=== PATIENT | female | born 1995 | race African-American/Black ===

== ENCOUNTER 2016-09-13 12:32 | Emergency (ER) | payer MEDICAID, OTHER ==
[~2016-09-13] VITALS: Ht 167.6 cm; Wt 78.0 kg
[~2016-09-13 12:32] MED LIST: MACR100C PO; NAPR-576 PO
[2016-09-13 12:33] VITALS: BP 103/56; PULSE 92; RESP 18; TEMP 98.6; O2SAT 98
[2016-09-13] MEDS ORDERED: SODIUM CHLOR 0.9% 1000 ML INJ 1,000 ML IV SCH (13:44)
[2016-09-13] MEDS ORDERED: SODIUM CHLORIDE 0.9% FLUSH 10 ML FLUSH IV FLUSH PRN (13:45)
[2016-09-13] MEDS ORDERED: ONDANSETRON HCL 4 MG/2 ML VIAL IVP ONE (13:45)
--- NOTE | 2016-09-13 13:46 | PD ---
HPI Chief Complaint: GI Complaint Time Seen by Provider: 13:46 Travel History International Travel<30 days: No Contact w/Intl Traveler<30days: No Traveled to known affect area: No History of Present Illness HPI 21-year-old female with no significant medical history presents to the emergency department for evaluation of nausea, vomiting, diarrhea since yesterday. Patient denies any hematemesis or hematochezia. No urinary symptoms. No abdominal pain. Patient states she is not . No vaginal bleeding or discharge. Cannot recall last menstrual cycle at this time. Denies any recent illnesses, fever, chills. No chest tightness. No difficulty breathing. No other symptoms to report. PFSH Past Medical History Asthma: Yes Developmental Delay: No Diabetes: No Diminished Hearing: No Immune Disorder: No Immunizations Current: Yes Social History Alcohol Use: Yes Tobacco Use: Yes Substance Use: No Allergies-Medications (Allergen,Severity, Reaction): Coded Allergies: Penicillin (Verified Adverse Reaction, Intermediate, YEAST INFECTION, 09/13) Reported Meds & Prescriptions Reported Meds & Active Scripts Active No Active Prescriptions or Reported Medications Review of Systems Except as stated in HPI: all other systems reviewed are Neg Physical Exam Narrative GENERAL: Well-nourished female patient, in no acute distress SKIN: Warm and dry. HEAD: Atraumatic. Normocephalic. EYES: Pupils equal and round. No scleral icterus. No injection or drainage. ENT: No nasal bleeding or discharge. Mucous membranes pink and moist. NECK: Trachea midline. No JVD. CARDIOVASCULAR: Elevated rate and rhythm. No murmur appreciated. RESPIRATORY: No accessory muscle use. Clear to auscultation. Breath sounds equal bilaterally. GASTROINTESTINAL: Abdomen soft, non-tender, nondistended. Hepatic and splenic margins not palpable. MUSCULOSKELETAL: No obvious deformities. No clubbing. No cyanosis. No edema. NEUROLOGICAL: Awake and alert. No obvious cranial nerve deficits. Motor grossly within normal limits. Normal speech. PSYCHIATRIC: Appropriate mood and affect; insight and judgment normal. Data Data Last Documented VS Vital Signs Date Time Temp Pulse Resp B/P Pulse Ox O2 Delivery O2 Flow Rate FiO2 09/13/16 13:53 93 09/13/16 13:47 98.2 83 109/63 Room Air 09/13/16 12:33 18 Orders Basic Metabolic Panel (Bmp) (09/13/16 13:44) Complete Blood Count With Diff (09/13/16 13:44) Urinalysis - C+S If Indicated (09/13/16 13:44) Iv Access Insert/Monitor (09/13/16 13:44) Ecg Monitoring (09/13/16 13:44) Oximetry (09/13/16 13:44) Ondansetron Inj (Zofran Inj) (09/13/16 13:45) Sodium Chlor 0.9% 1000 Ml Inj (Ns 1000 M (09/13/16 13:44) Sodium Chloride 0.9% Flush (Ns Flush) (09/13/16 13:45) Ed Urine Pregnancytest Poc (09/13/16 13:44) Labs Laboratory Tests Test 09/13/16 13:52 White Blood Count 12.1 TH/MM3 Red Blood Count 4.54 MIL/MM3 Hemoglobin 13.7 GM/DL Hematocrit 40.5 % Mean Corpuscular Volume 89.3 FL Mean Corpuscular Hemoglobin 30.2 PG Mean Corpuscular Hemoglobin 33.8 % Concent Red Cell Distribution Width 13.9 % Platelet Count 177 TH/MM3 Mean Platelet Volume 9.7 FL Neutrophils (%) (Auto) 91.4 % Lymphocytes (%) (Auto) 3.0 % Monocytes (%) (Auto) 5.0 % Eosinophils (%) (Auto) 0.5 % Basophils (%) (Auto) 0.1 % Neutrophils # (Auto) 11.0 TH/MM3 Lymphocytes # (Auto) 0.4 TH/MM3 Monocytes # (Auto) 0.6 TH/MM3 Eosinophils # (Auto) 0.1 TH/MM3 Basophils # (Auto) 0.0 TH/MM3 CBC Comment DIFF FINAL Differential Comment Urine Color YELLOW Urine Turbidity HAZY Urine pH 8.0 Urine Specific [place] 1.027 Urine Protein 30 mg/dL Urine Glucose (UA) NEG mg/dL Urine Ketones NEG mg/dL Urine Occult Blood NEG Urine Nitrite NEG Urine Bilirubin NEG Urine Urobilinogen LESS THAN 2.0 MG/DL Urine Leukocyte Esterase TRACE Urine RBC 1 /hpf Urine WBC 5 /hpf Urine Squamous Epithelial 39 /hpf Cells Urine Bacteria RARE /hpf Urine Mucus FEW /lpf Microscopic Urinalysis Comment CULT NOT INDICATED Sodium Level 138 MEQ/L Potassium Level 4.0 MEQ/L Chloride Level 102 MEQ/L Carbon Dioxide Level 29.6 MEQ/L Anion Gap 6 MEQ/L Blood Urea Nitrogen 12 MG/DL Creatinine 0.78 MG/DL Estimat Glomerular Filtration 114 ML/MIN Rate Random Glucose 100 MG/DL Calcium Level 8.5 MG/DL [facility] Medical Decision Making Medical Screen Exam Complete: Yes Emergency Medical Condition: Yes Medical Record Reviewed: Yes Differential Diagnosis Gastritis versus gastroenteritis viral versus bacterial versus colitis versus pancreatitis versus cholecystitis Narrative Course 21 year-old female presents to emergency department for evaluation of nausea, vomiting, diarrhea. Patient appears without distress. Overall her vital signs are stable. CBC is with mild leukocytosis 12.1 otherwise without acute concern. BMP is without acute concern. Urinalysis is hazy with 30 proteinuria , trace leukocyte esterase, rare bacteria, few mucus. Culture is not indicated. Patient is given IV fluids and Zofran. He has not vomited since in the emergency department. She verbalizes improvement in her symptoms. She is discharged home with anti-emetic. She agrees to return immediately with any acute worsening of symptoms. Diagnosis Primary Impression: Gastroenteritis Referrals: Primary Care Physician Patient Instructions: Gastroenteritis (ED), General Instructions Departure Forms: Tests/Procedures, Work Release Enter return to work date: Sep 15, 2016 Additional Instructions: Rest Maintain adequate oral hydration [place] diet Start with clear liquids and finances tolerated Follow-up with a primary care provider Return immediately with any acute worsening of symptoms Med/Other Pt SpecificInfo: Prescription(s) given Scripts Promethazine (Phenergan)25 Mg Tab25 Mg PO Q6H PRN (Nausea/Vomiting) #15 TAB Ref 0 Prov:Jennifer Black 09/13/16 Disposition: 01 DISCHARGE HOME Condition: Stable Jennifer Black Sep 13, 2016 13:46
[2016-09-13 13:47] VITALS: BP 109/63; PULSE 83; TEMP 98.2; O2SAT 96
[2016-09-13 13:53] VITALS: O2SAT 93
[2016-09-13 14:10] LABS: BASOPHIL % 0.1 % (0.0-2.0); EOSINOPHIL # 0.1 TH/MM3 (0-0.4); EOSINOPHIL % 0.5 % (0.0-4.0); HEMATOCRIT 40.5 % (35.0-46.0); HEMO FLAGS DIFF FINAL; LYMPHOCYTE # 0.4 TH/MM3 (1.0-4.8); MEAN CELL VOLUME 89.3 FL (80.0-100.0); MEAN CORPUSCULAR HEMOGLOBIN 30.2 PG (27.0-34.0); MEAN CORPUSCULAR HGB CONC 33.8 % (32.0-36.0); NEUT % 91.4 % (16.0-70.0); PLATELET COUNT 177 TH/MM3 (150-450); RED BLOOD COUNT 4.54 MIL/MM3 (4.00-5.30); RED CELL DISTRIBUTION WIDTH 13.9 % (11.6-17.2); WHITE BLOOD COUNT 12.1 TH/MM3 (4.0-11.0)
[2016-09-13 14:22] LABS: BACTERIA, URINE RARE /hpf; BLOOD, URINE NEG (NEG); COMMENT (UR) CULT NOT INDICATED; CULTURE IF INDICATED CULT NOT INDICATED; GLUCOSE,URINE NEG (NEG); KETONE, URINE NEG (NEG); MUCUS URINE FEW /lpf (OCC); NITRITE,URINE NEG (NEG); SQUAMOUS EPITHELIAL CELL URINE 39 /hpf (0-5); URINE COLOR YELLOW (YELLW/STRAW)
[2016-09-13 14:32] LABS: BICARBONATE 29.6 MEQ/L (21.0-32.0)
[2016-09-13] MEDS ORDERED: PROM25TA5 PO (14:44)
== END 2016-09-13 15:26 | disposition home or self-care (01) ==
LOC: NEPE 12:32
DX: K52.9 Noninfective gastroenteritis and colitis, unspecified (principal)
CPT/HCPCS: 80048; 81001; 84703; 85025; 96361; 96374; 99284; J2405; J7030

== ENCOUNTER 2017-05-21 12:51 | Emergency (ER) | payer SELFPAY ==
[~2017-05-21] VITALS: Ht 167.6 cm; Wt 63.2 kg
[~2017-05-21 12:51] MED LIST changes: -MACR100C PO; -NAPR-576 PO; +PROM25TA5 PO
[2017-05-21 12:54] VITALS: BP 109/62; PULSE 72; RESP 16; TEMP 98.3; O2SAT 99
[2017-05-21 15:21] LABS: BLOOD, URINE NEG (NEG); GLUCOSE,URINE NEG (NEG); KETONE, URINE NEG (NEG); NITRITE,URINE NEG (NEG); PH, URINE 5.5 (5.0-8.5)
[2017-05-21 15:47] LABS: URINE COLOR YELLOW (YELLW/STRAW)
[2017-05-21 15:48] LABS: SQUAMOUS EPITHELIAL CELL URINE 0-5 /hpf (0-5)
[2017-05-21 15:49] LABS: COMMENT (UR) CULT NOT INDICATED; CULTURE IF INDICATED CULT NOT INDICATED
[2017-05-21 17:22] LABS: AUTOMATED NEUTROPHIL # 4.5 TH/MM3 (1.8-7.7); BASOPHIL # 0.1 TH/MM3 (0-0.2); BASOPHIL % 1.5 % (0.0-2.0); EOSINOPHIL # 0.1 TH/MM3 (0-0.4); EOSINOPHIL % 1.2 % (0.0-4.0); HEMATOCRIT 37.3 % (35.0-46.0); HEMO FLAGS DIFF FINAL; LYMPH % 29.5 % (9.0-44.0); LYMPHOCYTE # 2.3 TH/MM3 (1.0-4.8); MEAN CELL VOLUME 89.7 FL (80.0-100.0); MEAN CORPUSCULAR HEMOGLOBIN 30.1 PG (27.0-34.0); MEAN CORPUSCULAR HGB CONC 33.6 % (32.0-36.0); MONO % 8.4 % (0.0-8.0); NEUT % 59.4 % (16.0-70.0); PLATELET COUNT 177 TH/MM3 (150-450); RED BLOOD COUNT 4.16 MIL/MM3 (4.00-5.30); RED CELL DISTRIBUTION WIDTH 12.7 % (11.6-17.2); WHITE BLOOD COUNT 7.6 TH/MM3 (4.0-11.0)
[2017-05-21 17:35] LABS: CHLORIDE 105 MEQ/L (98-107); POTASSIUM 3.6 MEQ/L (3.5-5.1); SODIUM (NA) 138 MEQ/L (136-145)
[2017-05-21 17:38] LABS: ANION GAP 4 MEQ/L (5-15); BICARBONATE 29.5 MEQ/L (21.0-32.0); BLOOD UREA NITROGEN 10 MG/DL (7-18)
--- NOTE | 2017-05-21 17:38 | PD ---
HPI Chief Complaint: Abdominal Pain Time Seen by Provider: 16:43 Travel History International Travel<30 days: No Contact w/Intl Traveler<30days: No Traveled to known affect area: No History of Present Illness HPI The patient was seen and examined in the presence of the nurse. This patient complains of some pelvic cramping. Duration 3 days. Symptoms are mild to moderate. Location is right lower quadrant. No vomiting or nausea or diarrhea. She is eating well. She is concerned that she has missed last month' s menstrual period. She is usually very regular on the menstrual periods. She took 3 home tests and one was positive and 2 were negative. She is confused as to if she is . Denies significant discharge. No lesions noted. No alleviating factors. No exacerbating factors PFSH Past Medical History Asthma: Yes Developmental Delay: No Diabetes: No Diminished Hearing: No Immune Disorder: No Immunizations Current: Yes Tetanus Vaccination: < 5 Years Influenza Vaccination: Yes ?: Unknown Social History Alcohol Use: No Tobacco Use: No Substance Use: No Allergies-Medications (Allergen,Severity, Reaction): Coded Allergies: penicillin G (Unverified Adverse Reaction, Intermediate, YEAST INFECTION, 05/21/17) Reported Meds & Prescriptions Reported Meds & Active Scripts Active No Active Prescriptions or Reported Medications Review of Systems General / Constitutional: No: Fever Eyes: No: Visual changes HENT: No: Headaches Cardiovascular: No: Chest Pain or Discomfort Respiratory: No: Shortness of Breath Gastrointestinal: Positive: Abdominal Pain Genitourinary: Positive: Pelvic Pain, No: Dysuria Musculoskeletal: No: Pain Skin: No Rash Neurologic: No: Weakness Psychiatric: No: Depression Endocrine: No: Polydipsia Hematologic/Lymphatic: No: Easy Bruising Physical Exam Narrative GENERAL: Well-nourished, well-developed patient in no apparent distress. SKIN: Focused skin assessment reveals no rash and nodules. Skin is Warm and dry. HEAD: Atraumatic. Normocephalic. EYES: Pupils equal and round. No scleral icterus. No injection or drainage. ENT: No nasal bleeding or discharge. Mucous membranes pink and moist. NECK: Trachea midline. No JVD. CARDIOVASCULAR: Regular rate and rhythm. No murmur appreciated. RESPIRATORY: No accessory muscle use. Clear to auscultation. Breath sounds equal bilaterally. GASTROINTESTINAL: Abdomen soft, non-tender, nondistended. Hepatic and splenic margins not palpable. MUSCULOSKELETAL: No obvious deformities. No clubbing. No cyanosis. No edema. NEUROLOGICAL: Awake and alert. No obvious cranial nerve deficits. Motor grossly within normal limits. Normal speech. PSYCHIATRIC: Appropriate mood and affect; insight and judgment normal. Pelvic: No significant discharge. No bleeding. No cervical motion tenderness. No adnexal mass or tenderness Data Data Last Documented VS Vital Signs Date Time Temp Pulse Resp B/P (MAP) Pulse Ox O2 Delivery O2 Flow Rate FiO2 05/21/17 17:59 72 16 113/64 (80) 100 Room Air 05/21/17 12:54 98.3 Orders Orders Urinalysis - C+S If Indicated (05/21/17 15:07) Ed Urine Pregnancytest Poc (05/21/17 15:07) Complete Blood Count With Diff (05/21/17 16:53) Basic Metabolic Panel (Bmp) (05/21/17 16:53) Beta Hcg (Quant/Titer) (05/21/17 16:53) Iv Access Insert/Monitor (05/21/17 16:53) Labs Laboratory Tests Test 05/21/17 15:15 05/21/17 17:05 Urine Color YELLOW Urine Turbidity CLEAR Urine pH 5.5 Urine Specific [place] 1.017 Urine Protein NEG mg/dL Urine Glucose (UA) NEG mg/dL Urine Ketones NEG mg/dL Urine Occult Blood NEG Urine Nitrite NEG Urine Bilirubin NEG Urine Leukocyte Esterase NEG Urine Squamous Epithelial Cells 0-5 /hpf Microscopic Urinalysis Comment CULT NOT INDICATED White Blood Count 7.6 TH/MM3 Red Blood Count 4.16 MIL/MM3 Hemoglobin 12.5 GM/DL Hematocrit 37.3 % Mean Corpuscular Volume 89.7 FL Mean Corpuscular Hemoglobin 30.1 PG Mean Corpuscular Hemoglobin Concent 33.6 % Red Cell Distribution Width 12.7 % Platelet Count 177 TH/MM3 Mean Platelet Volume 9.7 FL Neutrophils (%) (Auto) 59.4 % Lymphocytes (%) (Auto) 29.5 % Monocytes (%) (Auto) 8.4 % Eosinophils (%) (Auto) 1.2 % Basophils (%) (Auto) 1.5 % Neutrophils # (Auto) 4.5 TH/MM3 Lymphocytes # (Auto) 2.3 TH/MM3 Monocytes # (Auto) 0.6 TH/MM3 Eosinophils # (Auto) 0.1 TH/MM3 Basophils # (Auto) 0.1 TH/MM3 CBC Comment DIFF FINAL Differential Comment Blood Urea Nitrogen 10 MG/DL Creatinine 0.59 MG/DL Random Glucose 79 MG/DL Calcium Level 8.4 MG/DL Sodium Level 138 MEQ/L Potassium Level 3.6 MEQ/L Chloride Level 105 MEQ/L Carbon Dioxide Level 29.5 MEQ/L Anion Gap 4 MEQ/L Estimat Glomerular Filtration Rate 157 ML/MIN Human Chorionic Gonadotropin, Quant LESS THAN 1 MIU/ML MDM Medical Decision Making Medical Screen Exam Complete: Yes Emergency Medical Condition: Yes Medical Record Reviewed: Yes Differential Diagnosis Ectopic , IUP, PID, ovarian cyst Narrative Course I have reviewed the patient's electronic medical record. Patient's fairly frequent visitor. She has been here for pelvic pain in the past, one year ago IV placed CBC is normal Metabolic profile is normal Beta hCG is negative Urinalysis is normal Workup is normal Etiology of her amenorrhea and pelvic cramping is unclear No clinical suspicion of appendicitis She has benign soft nontender abdomen Recommend outpatient PERIOPERATIVE NURSE follow-up Diagnosis Primary Impression: Acute pelvic pain, female Additional Impression: Amenorrhea Additional Instructions: The patient was advised to follow up with loan service officer and return if they worsen. Med/Other Pt SpecificInfo: Other Scripts No Active Prescriptions or Reported Meds Disposition: 01 DISCHARGE HOME Condition: Stable Jones Mayfield MD May 21, 2017 17:38
[2017-05-21 17:41] LABS: GLOMERULAR FILTRATION RATE 157 ML/MIN (>89)
[2017-05-21 17:46] LABS: BETA HCG QUANT LESS THAN 1 MIU/ML (0-5)
[2017-05-21 17:59] VITALS: BP 113/64; PULSE 72; RESP 16; O2SAT 100
== END 2017-05-21 18:13 | disposition home or self-care (01) ==
LOC: PHED 12:51
DX: R10.2 Pelvic and perineal pain (principal); N91.2 Amenorrhea, unspecified
CPT/HCPCS: 80048; 81001; 84702; 84703; 85025; 99283

== ENCOUNTER 2017-07-12 05:01 | Emergency (ER) | payer SELFPAY ==
[~2017-07-12] VITALS: Ht 167.6 cm; Wt 63.5 kg
[2017-07-12 05:07] VITALS: BP 110/65; PULSE 78; RESP 16; TEMP 98.4; O2SAT 99
--- NOTE | 2017-07-12 05:37 | PD ---
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 She reports using a brand-new soap and thought maybe that was irritating her. She's also been here multiple times in the past which she says she's had possible positive bacterial vaginosis and yeast infections in the past I reviewed some of her cultures in the past they weren't never positive for GC or chlamydia. And I tell we will do a pelvic exam and send off for clue cells to rule and bacterial vaginosis but we would wait for the GC or chlamydia and to not empirically treat her with an injection or pills she agrees with that plan she says she's got burning localized pain in the vagina denies cramping denies dysuria denies frequency. She is not seen another doctor for this. And she has not taken any medications for this. PFSH Past Medical History Asthma: Yes Developmental Delay: No Diabetes: No Diminished Hearing: No Immune Disorder: No Immunizations Current: Yes Tetanus Vaccination: < 5 Years Influenza Vaccination: Yes ?: Not LMP: 06/10/17 : 0 Past Surgical History Surgical History: No Previous Surgery Social History Alcohol Use: No Tobacco Use: No Substance Use: No Allergies-Medications (Allergen,Severity, Reaction): Coded Allergies: penicillin G (Unverified Adverse Reaction, Intermediate, YEAST INFECTION, 05/21/17) Reported Meds & Prescriptions Reported Meds & Active Scripts Active Miconazole 3 Vaginal Supp (Miconazole Nitrate) 200 Mg Supp 200 Mg VAGINAL HS Review of Systems Except as stated in HPI: all other systems reviewed are Neg Genitourinary: Positive: Pelvic Pain (burning feeling in vagina) Physical Exam Narrative GENERAL: Nontoxic-appearing awake alert afebrile SKIN: Warm and dry. HEAD: Atraumatic. Normocephalic. EYES: Pupils equal and round. No scleral icterus. No injection or drainage. ENT: No nasal bleeding or discharge. Mucous membranes pink and moist. NECK: Trachea midline. No JVD. CARDIOVASCULAR: Regular rate and rhythm. RESPIRATORY: No accessory muscle use. Clear to auscultation. Breath sounds equal bilaterally. GASTROINTESTINAL: Abdomen soft, non-tender, nondistended. Hepatic and splenic margins not palpable. : Pelvic exam minimal discharge . There is no odor to slight discharge. there is no cottage cheese like discharge, there is no frothy grayish discharge , it appears to me like physiological normal discharge. Patient has Minimal to none CMT. No blood in the pelvic vaginal vault MUSCULOSKELETAL: Extremities without clubbing, cyanosis, or edema. No obvious deformities. NEUROLOGICAL: Awake and alert. No obvious cranial nerve deficits. Motor grossly within normal limits. Five out of 5 muscle strength in the arms and legs. Normal speech. PSYCHIATRIC: Appropriate mood and affect; insight and judgment normal. Data Data Last Documented VS Vital Signs Date Time Temp Pulse Resp B/P (MAP) Pulse Ox O2 Delivery O2 Flow Rate FiO2 07/12/17 05:17 16 07/12/17 05:07 98.4 78 110/65 (80) 99 Orders Orders Wet Prep Profile (07/12/17 05:21) Gc And Chlamydia Pcr (07/12/17 05:21) Urinalysis - C+S If Indicated (07/12/17 05:22) Ed Discharge Order (07/12/17 06:13) Labs Laboratory Tests Test 07/12/17 05:28 07/12/17 05:34 Urine Color YELLOW Urine Turbidity CLEAR Urine pH 6.0 Urine Specific [place] 1.025 Urine Protein NEG mg/dL Urine Glucose (UA) NEG mg/dL Urine Ketones NEG mg/dL Urine Occult Blood NEG Urine Nitrite NEG Urine Bilirubin NEG Urine Leukocyte Esterase NEG Urine RBC 0-2 /hpf Urine WBC 3-5 /hpf Urine Squamous Epithelial Cells 6-8 /hpf Urine Bacteria RARE /hpf Microscopic Urinalysis Comment CULT NOT INDICATED Clue Cells (Wet Prep) NONE SEEN Vaginal Trichomonas (Wet Prep) NONE SEEN Vaginal Yeast (Wet Prep) NONE SEEN MDM Medical Decision Making Medical Screen Exam Complete: Yes Emergency Medical Condition: Yes Differential Diagnosis Differential diagnosis includes bacterial vaginosis versus vaginitis secondary to soap exposure versus cervicitis PID UTI and other Narrative Course Pelvic exam does not disclose any significant discharge. There are no clue cells. And no trichomonas on wet prep patient will be discharged with miconazole suppository prescription and follow-up as an outpatient Diagnosis Primary Impression: Vaginitis Qualified Codes: N76.0 - Acute vaginitis Patient Instructions: General Instructions, Vaginitis (ED) Scripts Fluconazole (Diflucan) 150 Mg Tab 150 MG PO ONCE for Infection, #1 TAB 0 Refills Prov: Simone Vera MD 07/12/17 Miconazole 3 Vaginal Supp (Miconazole 3 Vaginal Supp) 200 Mg Supp 200 MG VAGINAL HS for Infection, #3 SUPP 0 Refills Prov: Simone Vera MD 07/12/17 Disposition: 01 DISCHARGE HOME Condition: Good Simone Vera MD Jul 12, 2017 05:37
[2017-07-12 05:48] LABS: BILIRUBIN, URINE NEG (NEG); BLOOD, URINE NEG (NEG); GLUCOSE,URINE NEG (NEG); KETONE, URINE NEG (NEG); NITRITE,URINE NEG (NEG); URINE LEUKOCYTE ESTERASE NEG (NEG)
[2017-07-12 05:52] LABS: URINE COLOR YELLOW (YELLW/STRAW)
[2017-07-12 05:53] LABS: BACTERIA, URINE RARE /hpf; RBC, URINE 0-2 /hpf (0-3)
[2017-07-12] MEDS ORDERED: MICO200V VAGINAL (06:11)
[2017-07-12] MEDS ORDERED: DIFL150T PO (06:26)
[2017-07-12 06:30] VITALS: BP 93/61
== END 2017-07-12 06:31 | disposition home or self-care (01) ==
LOC: PHED 05:01
DX: N76.0 Acute vaginitis (principal); R20.8 Other disturbances of skin sensation; R10.2 Pelvic and perineal pain; Z87.09 Personal history of other diseases of the respiratory system
CPT/HCPCS: 81001; 87210; 87491; 87591; 99284